=== PATIENT | male | born 1990 ===

== ENCOUNTER 2016-10-18 18:23 | Emergency (ER) | payer OTHER ==
[2016-10-18 18:38] VITALS: TEMP 36.5
--- NOTE | 2016-10-18 18:58 | EMERGENCY ROOM VISIT NOTE ---
History Report prepared by Stevie: Alona Myers Under the Supervision of: Dr. Benton Dillard M.D. First contact with patient: 18:35 Chief Complaint: ANKLE PAIN Stated Complaint: R ANKLE FRAC History of Present Illness The patient is a 26 year old male who presents to the Emergency Room from [facility] with complaints of persistent right ankle pain secondary to fall occurring a few minutes prior to arrival. He currently rates a pain intensity of 2-3/10. He has worsening pain with movement. He was jumping on a trampoline and came down at an awkward angle while landing on his feet. He denies hitting his head. The patient does not have any medical problems. His last meal was around 4 pm. He does not have have any narcotic addiction problems. Source of History: patient Onset: a few minutes prior to arrival Position: ankle (right) Symptom Intensity: 2-3/10 Timing: other (persistent) Modifying Factors (Worsening): movement Review of Systems See HPI for pertinent positives & negatives. A total of 10 systems reviewed and were otherwise negative. Past Medical & Surgical Medical Problems: (1) No Known Active Medical Problems Family History Patient reports no known family medical history. Social History Marital Status: single Occupation Status: employed Current/Historical Medications Scheduled PRN Oxycodone Immediate Rel Tab (Roxicodone Ir), 1-2 TAB PO Q4H PRN for Severe Pain Physical Exam Vital Signs Date Time Temp Pulse Resp B/P (MAP) Pulse Ox O2 Delivery O2 Flow Rate FiO2 10/18/16 18:38 36.5 98 20 136/65 96 Room Air Physical Exam GENERAL: Patient is well appearing and in minimal distress. HEENT: No acute trauma, normocephalic atraumatic, mucous membranes moist, no nasal congestion, no scleral icterus. NECK: No stridor, no adenopathy, no meningismus, trachea is midline. LUNGS: No dyspnea. Clear to auscultation and equal bilaterally. No wheeze, no rhonchi. HEART: Regular rate and rhythm. No murmurs, rubs, gallops appreciated. EXTREMITIES: Normal motion all extremities, no cyanosis, no edema. Tenderness to palpation with step off over the right lateral malleolus and right medial malleolus, pain worsens with range of motion. Distal pulses, sensation, and movement intact. No tenderness to palpation over the fibular head, mild tenderness to palpation of the distal fibula. NEUROLOGIC: Alert and oriented, no acute motor or sensory deficits, no focal weakness, cranial nerves grossly intact. SKIN: No rash, no jaundice, no diaphoresis. Medical Decision & Procedures ER Provider Diagnostic Interpretation: X ray results are stated below per my interpretation and the radiologist's interpretation. RIGHT ANKLE MIN 3 VIEWS ROUTINE CLINICAL HISTORY: Right ankle pain status post trauma COMPARISON: None. DISCUSSION: There is an acute oblique fracture of the distal fibula. The distal fragment is posteriorly displaced x 7 mm, and laterally displaced x 4 mm. There is equivocal minimal narrowing of the medial ankle mortise versus a projectional artifact.. IMPRESSION: 1. Acute oblique fracture of the distal fibula 2. Equivocal mild widening of the medial ankle mortise Electronically signed by: Lavon Porras M.D. 10/18/2016 7:25 PM Dictated Date/Time: 10/18/2016 7:23 PM RIGHT TIBIA/FIBULA 2 VIEWS ROUTINE CLINICAL HISTORY: Right lower leg pain COMPARISON: None. DISCUSSION: 2 views reveal an acute oblique fracture of the distal fibula. No tibial fractures are visualized. On the current view, the ankle mortise appears intact. IMPRESSION: Oblique fracture of the distal fibula. Electronically signed by: Lavon Porras M.D. 10/18/2016 7:25 PM Dictated Date/Time: 10/18/2016 7:25 PM ED Course 1835: The patient was evaluated in room B09. A complete history and physical exam was performed. 1944: Oxycodone HCl 1 homepack PO 1937: Reevaluated the patient. Discussed results and discharge instructions: He verbalized understanding and agreement. The patient is ready for discharge. Medical Decision Differential diagnosis includes but is not limited to fracture, dislocation, N/ V injury. Medication Reconciliation: I attest that I have personally reviewed the patient 's current medication list. Blood Pressure Screening: Patient was found to have a slightly elevated blood pressure due to circumstances. I do not believe that the patient requires hypertension monitoring. 26 yr old male arrives with right ankle injury. Suspect medial ligamentous injury though no need to reduce currently. Right distal spiral fibular fracture. Splint with UOC follow up in clinic in next 24-48 hours. Rest, ice, elevate, splint, crutches. Oxy IR and restrictions there-of reviewed. Discussed RTED if severe pain or other concerns. Stable and comfortable with plan. Impression Primary Impression: Fracture of distal end of right fibula Additional Impression: Severe sprain of right ankle Scribe Attestation The scribe's documentation has been prepared under my direction and personally reviewed by me in its entirety. I confirm that the note above accurately reflects all work, treatment, procedures, and medical decision making performed by me. Departure Information Dispostion Home / Self-Care Prescriptions Oxycodone Immediate Rel Tab (ROXICODONE IR) 5 Mg Tab 1-2 TAB PO Q4H Y for Severe Pain, #30 TAB Prov: Benton Dillard M.D. 10/18/16 [facility] ORTHOPEDICS Forms HOME CARE DOCUMENTATION FORM, IMPORTANT VISIT INFORMATION Patient Instructions Ankle Fx, My [facility] Additional Instructions Please follow up with Orthopedics in the next 1 to 2 days for repeat evaluation. You have received a narcotic pain medication prescription. These medications may cause drowsiness and should not be used with other sedative medications. Do not drive, drink alcohol, perform dangerous activities, nor make important decisions after taking these medications. nursing home use or inappropriate use may lead to addiction. Problem Qualifiers
--- NOTE | 2016-10-18 19:26 | DIAGNOSTIC IMAGING REPORT ---
RIGHT ANKLE MIN 3 VIEWS ROUTINE CLINICAL HISTORY: Right ankle pain status post trauma COMPARISON: None. DISCUSSION: There is an acute oblique fracture of the distal fibula. The distal fragment is posteriorly displaced x 7 mm, and laterally displaced x 4 mm. There is equivocal minimal narrowing of the medial ankle mortise versus a projectional artifact.. IMPRESSION: 1. Acute oblique fracture of the distal fibula 2. Equivocal mild widening of the medial ankle mortise Electronically signed by: Lavon Porras M.D. 10/18/2016 7:25 PM Dictated Date/Time: 10/18/2016 7:23 PM
--- NOTE | 2016-10-18 19:27 | DIAGNOSTIC IMAGING REPORT ---
RIGHT TIBIA/FIBULA 2 VIEWS ROUTINE CLINICAL HISTORY: Right lower leg pain COMPARISON: None. DISCUSSION: 2 views reveal an acute oblique fracture of the distal fibula. No tibial fractures are visualized. On the current view, the ankle mortise appears intact. IMPRESSION: Oblique fracture of the distal fibula. Electronically signed by: Lavon Porras M.D. 10/18/2016 7:25 PM Dictated Date/Time: 10/18/2016 7:25 PM
[2016-10-18] MEDS ORDERED: OXYC1TAB3 PO (19:43)
[2016-10-18] MEDS ORDERED: OXYCODONE IR HOME PACK PO ONE (19:45)
[2016-10-18 20:25] VITALS: BP 129/66; PULSE 80; O2SAT 97
== END 2016-10-18 20:26 | disposition home or self-care (01) ==
LOC: C.EDB 18:26
DX: S82.831A Other fracture of upper and lower end of right fibula, initial encounter for closed fracture (principal); S93.401A Sprain of unspecified ligament of right ankle, initial encounter; W18.39XA Other fall on same level, initial encounter; Y93.44 Activity, trampolining; Y99.8 Other external cause status; Y92.39 Other specified sports and athletic area as the place of occurrence of the external cause

== ENCOUNTER 2016-10-23 14:26 | Day surgery (SDC) | payer OTHER ==
--- NOTE | 2016-10-22 12:18 | HISTORY & PHYSICAL EXAMINATION ---
DATE OF ADMISSION: 10/23/2016 SUBJECTIVE CHIEF COMPLAINT: Right fibula fracture. 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 He was on a trampoline when he sustained an injury to the right ankle. He went to [facility] where x-rays were performed. He was noted to have a displaced distal fibula fracture. He was placed into a splint and referred for surgical management. PAST MEDICAL HISTORY: None. PAST SURGICAL HISTORY: Left radius and ulna ORIF in October 2010. ALLERGIES: No known drug allergies. CURRENT MEDICATIONS: None. FAMILY HISTORY: Noncontributory. SOCIAL HISTORY: The patient denies tobacco use. He has approximately 2-3 alcoholic drinks per week. OBJECTIVE PHYSICAL EXAMINATION: GENERAL: The patient is alert and oriented x3. He is in no acute distress. He is a well-dressed, well-nourished 26-year-old male whose affect is appropriate. CARDIOVASCULAR EXAMINATION: Dorsalis pedis, posterior tib pulse +2/4. Cap refill is less than 2 seconds. HEART: Has a regular rhythm and rate without murmurs. LUNGS: Clear to auscultation bilateral. LYMPHATIC EXAMINATION: No evidence of any swollen lymph nodes. MUSCULOSKELETAL EXAMINATION: The patient is nonweightbearing on the right lower extremity using crutches. After removal of splint on the right lower extremity he is noted to have a mild to moderate swelling and ecchymosis of the right ankle. No range of motion or strength testing were performed. He was noted to have tenderness over the distal fibula. SKIN EXAMINATION: There are no scars, rashes or ulcers noted. NEUROLOGIC EXAMINATION: Sensation normal intact distally right lower extremity. X-RAY EXAMINATION: Three views of the right ankle demonstrate a displaced Nolan C distal fibula fracture with widening of the medial ankle mortise. ASSESSMENT DIAGNOSES: 1. Right distal fibula fracture. 2. Possible syndesmotic injury. PLAN: Above assessment was discussed with the patient. At this time it was recommended the patient undergo an ORIF of the right distal fibula fracture with possible ORIF of the syndesmosis. All potential risks, benefits, complications, alternatives and rehab have been discussed with the patient. At this time, he wishes to proceed with the surgery as indicated. He will be scheduled for the surgery on 10/23/2016. SHERLEY
[~2016-10-23] VITALS: Ht 172.7 cm; Wt 64.0 kg
[~2016-10-23 14:26] MED LIST: ATROPINE SULFATE 0.1 MG/ML 5ML SYR IV PRN; CEFAZOLIN 1000MG/55 ML D5W IV SCH; EpHEDrine SULFATE INJ 50 MG/ML AMP IV PRN; FENTANYL CITRATE INJ 50 MCG/1 ML 2 ML VIAL IV PRN; HYDROmorphone INJ 1 MG/ML SYR IV PRN; LACTATED RINGER'S 1000ML 1,000 ML IV SCH; ONDANSETRON INJ 2 MG/ML 2 ML VIAL IV PRN; OXYC1TAB3 PO
[2016-10-23 15:00] VITALS: BP 127/88; PULSE 77; TEMP 36.8; O2SAT 100; Ht 172.7 cm; Wt 64.0 kg
--- NOTE | 2016-10-23 15:47 | History & Physical Bridge Note ---
H&P Re-Evaluation Bridge Note: I have examined the patient, reviewed the History & Physical and in the interval since the performance of the History & Physical I have noted the following changes of clinical significance: No changes noted
[2016-10-23] MEDS ORDERED: ROPIVACAINE 0.5% 5 MG/ML 30 ML VIAL ONE (16:44)
[2016-10-23] MEDS ORDERED: BUPIVACAINE 0.5 % 5 MG/1 ML PF 10ML VIAL ONE (16:44)
[2016-10-23] MEDS ORDERED: MIDAZOLAM HCL 1 MG/ML 2ML VIAL ONE (16:46)
[2016-10-23] MEDS ORDERED: FENTANYL CITRATE INJ 50 MCG/1 ML 2 ML VIAL ONE ×2 (16:47→17:47)
[2016-10-23] MEDS ORDERED: PROPOFOL IV EMULSION 10 MG/ML 20 ML VIAL IV ONE ×2 (17:13→18:46)
[2016-10-23] MEDS ORDERED: LIDOCAINE HCL 2% 2 ML VIAL (20MG/ML) ONE (17:13)
[2016-10-23] MEDS ORDERED: ONDANSETRON INJ 2 MG/ML 2 ML VIAL ONE (17:13)
[2016-10-23] MEDS ORDERED: DEXAMETHASONE SOD INJ 4 MG/ML VIAL ONE (17:13)
[2016-10-23] MEDS ORDERED: BUPIVACAINE/EPINEPHRINE 0.5% MPF 1:200,000 30 ML VIAL ONE (17:13)
[2016-10-23] MEDS ORDERED: BACITRACIN 50000 UNIT VIAL ONE (18:12)
--- NOTE | 2016-10-23 18:51 | [facility] Post Operative Brief Note ---
Immediate Operative Summary Operative Date Oct 23, 2016. Pre-Operative Diagnosis Right displaced distal fibula fracture; syndemotic disruption Post-Operative Diagnosis Right displaced distal fibula fracture; syndemotic disruption Procedure(s) Performed Open reduction internal fixation right distal fibula fracture; Open reduction internal fixation syndesmosis, right Surgeon Dr Dyana Vanegas Home Economist Consumer Service Surgeon(s) Brian Mehta PA-C Estimated Blood Loss 5 ml Findings See Dict Specimens none per surgeon Drains None Anesthesia GLMA w/ popliteal block Complication(s) None Disposition Recovery Room / PACU
[2016-10-23] MEDS ORDERED: PERCOCET HOME PACK PO ONE ×2 (19:00→19:45)
[2016-10-23] MEDS ORDERED: OXYC-57 PO (19:23)
--- NOTE | 2016-10-23 19:26 | Discharge Instructions ---
Discharge Instructions Date of Service Oct 23, 2016. Admission Reason for Admission: Right Distal Fibula Fracture Discharge Discharge Diagnosis / Problem: S/P ORIF distal fibula fracture with Syndesmotic screw Discharge Goals Goal(s): Decrease discomfort, Improve function Activity Recommendations Activity Limitations: per Instructions/Follow-up section . Instructions / Follow-Up Instructions / Follow-Up ACTIVITY RECOMMENDATIONS: Limitations: No weight bearing to affected limb at all times. SPECIAL CARE INSTRUCTIONS: * Some drainage onto the dressing is normal and is no cause for alarm. * Some swelling is natural especially after walking. * When resting, keep your foot elevated above the level of your heart. * Call [facility] if you notice: -Increased drainage -Fever over 101 degrees F -Severe constant pain BANDAGE: * Leave bandage/cast in place unless otherwise directed. * Keep bandage/cast dry at all times. FOLLOW UP VISIT WITH DR. VILLANUEVA If appointment is not already scheduled: Please call [facility] after you get home today to schedule a follow-up appointment for [address] Villanueva at . Current Hospital Diet Patient's current hospital diet: Regular Diet Discharge Diet Recommended Diet: Regular Diet Procedures Procedures Performed: Open reduction internal fixation right distal fibula fracture; Open reduction internal fixation syndesmosis, right Pending Studies Studies pending at discharge: no Medical Emergencies . Who to Call and When: Medical Emergencies: If at any time you feel your situation is an emergency, please call 911 immediately. . Non-Emergent Contact Non-Emergency issues call your: Surgeon Call Non-Emergent contact if: temperature is above 101.5, your pain is worsening, wound has increased drainage, wound has increased redness . "Provider Documentation" section prepared by Jovanny Mehta. . VTE Core Measure Inpt VTE Proph given/why not?: Treatment not indicated [place] Drug Monitoring Program Search Results: patient reviewed within database, no issues identified
[2016-10-23] MEDS ORDERED: MoRPHine SULFATE 4 MG/ML 1 ML CARP\\VIAL IV PRN (19:30)
[2016-10-23] MEDS ORDERED: IBUPROFEN 200 MG TAB PO PRN (19:30)
[2016-10-23] MEDS ORDERED: OXYCODONE/ACETAMINOPHEN 5-325 TAB PO PRN (19:30)
[2016-10-23] MEDS ORDERED: ONDANSETRON INJ 2 MG/ML 2 ML VIAL IV PRN (19:30)
--- NOTE | 2016-10-23 19:32 | Anesthesiology Progress Note ---
Anesthesia Post Op Note Date & Time Oct 23, 2016 at 19:32 Vital Signs Pain Intensity: 1 Vital Signs Past 12 Hours Date Time Temp Pulse Resp B/P (MAP) Pulse Ox O2 Delivery O2 Flow Rate FiO2 10/23/16 19:25 76 16 129/82 100 Mask 8 10/23/16 19:17 36.5 66 16 132/85 95 Mask 8 10/23/16 15:00 36.8 77 16 127/88 100 Room Air Notes Mental Status: alert / awake / arousable, participated in evaluation Pt Amnestic to Procedure: Yes Nausea / Vomiting: adequately controlled Pain: adequately controlled Airway Patency, RR, SpO2: stable & adequate BP & HR: stable & adequate Hydration State: stable & adequate Anesthetic Complications: no major complications apparent
--- NOTE | 2016-10-23 19:46 | DIAGNOSTIC IMAGING REPORT ---
RIGHT ANKLE 2 VIEWS CLINICAL HISTORY: POST OP Right COMPARISON STUDY: Right ankle 10/18/2016. FINDINGS: Lateral cortical plate and screws transfixing the distal fibular fracture. The alignment is near-anatomic. There is a single syndesmotic screw. No dislocation. Overlying splint material obscures fine bony detail. IMPRESSION: Status post internal fixation of a distal fibular fracture. The hardware appears intact. The alignment is near-anatomic. Electronically signed by: Bassam Jorgensen M.D. 10/23/2016 7:45 PM Dictated Date/Time: 10/23/2016 7:44 PM
[2016-10-23 20:00] VITALS: BP 136/82; PULSE 74; TEMP 36.4; O2SAT 98
--- NOTE | 2016-10-23 20:19 | OPERATIVE REPORT ---
DATE OF OPERATION: 10/23/2016 PREOPERATIVE DIAGNOSES: 1. Right displaced Nolan C distal fibula fracture. 2. Syndesmotic disruption. POSTOPERATIVE DIAGNOSES: Same. PROCEDURES: 1. Open reduction and internal fixation of the right distal fibula fracture 2. Open reduction and internal fixation of syndesmosis. SURGEON: Dr. Vanegas. SECURITY CONTROL CENTER OPERATOR: Jovanny Mehta PA-C who was present for patient positioning, sterile prep and drape, management of retractors and instruments. He was present through the critical portions of the case including wound closure, application of sterile dressing and transport of the patient to recovery. SURGEON: Dr. Vanegas. ANESTHESIA: General LMA with popliteal block. SPECIMENS: None. DRAINS: None. COMPLICATIONS: None. BLOOD LOSS: 5 mL. 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 He was unable to ambulate. He was eventually seen in my orthopedic clinic, radiographs were reviewed and then scheduled for surgery as indicated. All potential risks, benefits, complications, and alternatives, rehab, potential for incomplete relief of symptoms, need for further surgery, DVT, PE, , persistent pain, swelling, scarring, weakness, neurovascular injury, wound complications, hardware failure, nonunion, malunion were discussed with the patient. The patient decided to proceed with the procedure as indicated. DESCRIPTION OF PROCEDURE: After the patient received a popliteal nerve block in the preop holding area, the patient was then taken to the operative suite and placed supine on the operating room table. After reviewing consent and identification of proper operative site, the patient was anesthetized, LMA was placed. Tourniquet was placed high on the right thigh over cast padding. Right lower extremity was then sterilely prepped and draped in usual fashion, elevated, and exsanguinated with an Esmarch bandage and tourniquet inflated to 300 mmHg. Next, a 15-blade scalpel was used to make an incision centered over the fracture lateral aspect of the right distal fibula. The incision was then deepened through the subcutaneous tissue and meticulous hemostasis was achieved with electrocautery. Full thickness skin flaps were developed, sensory cutaneous nerves identified, freed, retracted, and protected. Next, the periosteum at the level of the fracture was then incised with 15-blade scalpel and then the periosteum was then judiciously elevated superiorly and inferiorly at the level of the fracture. Next, the fracture site was then carefully irrigated and debrided with a small dental pick. Fracture ends were then anatomically reduced using bone forceps under live fluoroscopic assistance. Next, a single lag screw with a 3.5 mm screw was placed crossing the fracture to secure the reduction and fixation followed by application of a 7-hole 1/3 tubular Synthes stainless steel plate, which was then firmly affixed to the lateral aspect of the fibula. Next, under live fluoroscopic assistance, a 4.5 mm solid syndesmotic screw was placed to secure the syndesmosis with the ankle held in neutral full dorsiflexion. Next, final radiographs were obtained in the AP and lateral projections noting anatomic fixation and reduction of the fibula and the syndesmosis, followed by irrigation with sterile normal saline, and closure of the deep soft tissues with 2-0 Vicryl sutures. Next, the dermis was closed using buried interrupted 3-0 Vicryl and skin was closed using running 4-0 nylon suture. A sterile compressive dressing and a bulky Jovanny Wilson plaster splint was applied in neutral dorsiflexion. It was overwrapped with Jung wrap. Tourniquet was released. The patient was awakened and taken to recovery in stable condition. I attest to the content of the Intraoperative Record and any orders documented therein. Any exceptions are noted below. SHERLEY
--- NOTE | 2016-10-23 21:04 | DIAGNOSTIC IMAGING REPORT ---
RIGHT ANKLE 2 VIEWS CLINICAL HISTORY: RT ORIF ANKLE Right COMPARISON STUDY: Right ankle 10/18/2016. FINDINGS: Total fluoroscopy time was 9 seconds. 2 fluoroscopic spot images. There is a lateral cortical plate and screws transfixing the distal fibular fracture. There is a single syndesmotic screw. The hardware is intact. The alignment is near-anatomic. IMPRESSION: Fluoroscopy provided for internal fixation of a distal right fibular fracture. Electronically signed by: Bassam Jorgensen M.D. 10/23/2016 9:03 PM Dictated Date/Time: 10/23/2016 9:02 PM
== END 2016-10-23 20:35 | disposition home or self-care (01) ==
LOC: C.ACU 14:26
PROVIDERS: ATTEND Orthopaedic Surgery Sports Medicine
DX: S82.831A Other fracture of upper and lower end of right fibula, initial encounter for closed fracture (principal); Y93.44 Activity, trampolining; W09.8XXA Fall on or from other playground equipment, initial encounter; S93.431A Sprain of tibiofibular ligament of right ankle, initial encounter